=== PATIENT | male | born 1935 | race Caucasian/White ===

== ENCOUNTER 2023-05-25 04:21 | Day surgery (SDC) | payer OTHER ==
[2023-05-23 13:59] VITALS: BMI 21.1
[2023-05-25 12:19] VITALS: TEMP 98.9
[2023-05-25 12:49] VITALS: RESP 18
[2023-05-25 13:08] VITALS: BP 132/28; PULSE 66
== END 2023-05-25 13:25 | disposition home or self-care (01) ==
LOC: JASU-ENDO 04:21
PROVIDERS: ATTEND Internal Medicine Gastroenterology
PROC: 0W3P8ZZ Control Bleeding in Gastrointestinal Tract, Via Natural or Artificial Opening Endoscopic (ICD-10-PCS; principal; 2023-05-25 11:00)
DX: K55.20 Angiodysplasia of colon without hemorrhage (principal); K62.89 Other specified diseases of anus and rectum; K62.7 Radiation proctitis; K57.30 Diverticulosis of large intestine without perforation or abscess without bleeding; I10 Essential (primary) hypertension; E11.9 Type 2 diabetes mellitus without complications; Z79.84 Long term (current) use of oral hypoglycemic drugs